=== PATIENT | female | born 1955 | race Caucasian/White ===

== ENCOUNTER 2016-08-03 13:42 | Outpatient (CLI) | payer BC ==
--- NOTE | 2016-08-04 13:49 | Mammography Report ---
DIGITAL SCREENING MAMMOGRAM: 08/03/2016 CLINICAL INDICATION: A 60-year-old for screening. COMPARISON: 08/2008 TECHNIQUE: Routine CC and MLO projections were obtained of the breasts. FINDINGS: The breasts again demonstrate scattered fibroglandular densities bilaterally. The previou sly noted cyst in the left retroareolar breast has resolved. No suspicious masses, clustered microca lcifications, or regions of architectural distortion are identified. IMPRESSION: NEGATIVE EXAMINATION. RECOMMENDATION: Routine annual screening unless otherwise clinically indicated. BI-RADS category 1, negative. STANDARD QUALIFYING STATEMENTS 1. This examination was reviewed with the aid of Computer-Aided Detection (CAD). 2. A negative or benign imaging report should not delay biopsy if clinically suspicious findings are present. Consider surgical consultation if warranted. More than 5% of cancers are not identified by i maging. 3. Dense breasts may obscure an underlying neoplasm. JOB #: [id number] EXT JOB #:[id number]
== END 2016-08-03 13:43 | disposition home or self-care (01) ==
LOC: DI.N 13:42
PROVIDERS: ATTEND Obstetrics & Gynecology
DX: Z12.31 Encounter for screening mammogram for malignant neoplasm of breast (principal)
CPT/HCPCS: 77067

== ENCOUNTER 2017-06-29 10:56 | Outpatient (CLI) | payer BC ==
--- NOTE | 2017-06-29 15:11 | XRAY Report ---
THREE VIEW RIGHT SHOULDER: 06/29/2017 CLINICAL INDICATION: Impingement. FINDINGS: Internal and external rotational views and a scapular Y view of the right shoulder demonstrate degenerative changes of the acromioclavicular and glenohumeral joints. The acromion is type 2. There is no evidence of fracture or dislocation. No foreign body is seen in the soft tissues. IMPRESSION: DEGENERATIVE CHANGES OF THE ACROMIOCLAVICULAR AND GLENOHUMERAL JOINTS. TD: 06/29/2017 15:11
== END 2017-06-29 10:57 | disposition home or self-care (01) ==
LOC: DI.N 10:56
PROVIDERS: ATTEND Family Medicine
DX: M19.011 Primary osteoarthritis, right shoulder (principal)